=== PATIENT | male | born 1975 | race Caucasian/White ===

== ENCOUNTER 2023-09-21 11:01 | Emergency (ER) | payer OTHER ==
[2023-09-21] MEDS ORDERED: Morphine 4 MG/ML Syringe IVPUSH ONE (11:35)
[2023-09-21] MEDS ORDERED: Morphine 2 MG/ML SYRINGE IVPUSH ONE (12:26)
[2023-09-21] MEDS ORDERED: Diphtheria,Pertussis(Acell),Tetanus Vaccine 0.5 ML Syringe IM ONE (13:20)
== END 2023-09-21 16:07 | disposition home or self-care (01) ==
LOC: JD.ED 11:01
DX: S52.571A Other intraarticular fracture of lower end of right radius, initial encounter for closed fracture (principal); S82.042A Displaced comminuted fracture of left patella, initial encounter for closed fracture; Z79.899 Other long term (current) drug therapy; W11.XXXA Fall on and from ladder, initial encounter; Y93.39 Activity, other involving climbing, rappelling and jumping off
CPT/HCPCS: 29125; 73090; 73120; 73552; 73562; 73590; 90471; 90715; 96374; 96376; 99283; J2270; 99282

== ENCOUNTER 2023-10-01 08:30 | Day surgery (SDC) | payer OTHER ==
[~2023-10-01 08:30] MED LIST: Lactated Ringers 1,000 ML IV SCH; Sodium Chloride 0.9% 10 ML Syringe FLUSH PRN; Sodium Chloride 0.9% 10 ML Syringe FLUSH SCH
[2023-10-01] MEDS ORDERED: fentaNYL 250 MCG/5 ML SDV ONE (09:30)
[2023-10-01] MEDS ORDERED: Midazolam 1 MG/ML 2 ML SDV ONE (09:30)
[2023-10-01] MEDS ORDERED: Ropivacaine 0.5% 5 MG/ML 30 ML SDV ONE (09:45)
[2023-10-01] MEDS ORDERED: dexmedeTOMIDine HCl 200 MCG/2 ML SDV ONE (09:45)
[2023-10-01] MEDS ORDERED: EPINEPHrine 1 MG/ML SDV ONE (09:45)
[2023-10-01] MEDS ORDERED: Dexamethasone 4 MG/ML 5 ML MDV ONE (09:45)
[2023-10-01] MEDS ORDERED: Lidocaine 1% 4 ML ONE (10:34)
[2023-10-01] MEDS ORDERED: Propofol 200 MG/20 ML SDV ONE (10:34)
[2023-10-01] MEDS ORDERED: Ondansetron 4 MG/2 ML SDV ONE ×2 (10:57→11:27)
[2023-10-01] MEDS ORDERED: Lactated Ringers 1,000 ML IV ONE (11:00)
[2023-10-01] MEDS ORDERED: ceFAZolin 2 GM Vial ONE (11:00)
[2023-10-01] MEDS ORDERED: Metoclopramide 10 MG/2 ML SDV ONE (11:33)
[2023-10-01] MEDS ORDERED: HYDROmorphone 0.5 MG/0.5 ML Syringe IVPUSH PRN (11:38)
[2023-10-01] MEDS ORDERED: fentaNYL 100 MCG/2 ML SDV IVPUSH PRN (11:38)
[2023-10-01] MEDS ORDERED: Acetaminophen/HYDROcodone 325-5 MG Tab PO SCH (12:51)
[2023-10-01] MEDS ORDERED: Cyclobenzaprine 10 MG Tab PO SCH (14:26)
== END 2023-10-01 15:23 | disposition home or self-care (01) ==
LOC: JD.SDS 08:30
PROVIDERS: ATTEND Orthopaedic Surgery
DX: S82.002A Unspecified fracture of left patella, initial encounter for closed fracture (principal); S62.101A Fracture of unspecified carpal bone, right wrist, initial encounter for closed fracture; F17.210 Nicotine dependence, cigarettes, uncomplicated; Z98.890 Other specified postprocedural states; X58.XXXA Exposure to other specified factors, initial encounter
CPT/HCPCS: 25605; 27524; 73560; 76000; A9270; J0171; J0690; J1100; J1170; J2250; J2405; J2704; J2765; J2795; J3010; J7120; 01392; 64447; J3490